=== PATIENT | female | born 1950 ===

== ENCOUNTER 2020-06-24 07:20 | Day surgery (SDC) | payer OTHER ==
[~2020-06-24] VITALS: Ht 162.6 cm; Wt 81.0 kg
[~2020-06-24 07:20] MED LIST: ALLO100 PO; ALLO300 PO; ALLOPURINOL; AMLO5 PO; BUME2 PO; CALC.25 PO; DULO30 PO; DULO60 PO; Estradiol0.5 MG VAG; HYDRA50 PO; LOSA50 PO; MELATIN3 MG PO; MELO7.5 PO; PREG100 PO; PREG200 PO; SPIR25 PO; TRAZ50 PO; VOLTAREN ARTHRI20 GM TOP
[2020-06-24] MEDS ORDERED: LEVSOD75 PO (07:32)
== END 2020-06-24 09:18 | disposition home or self-care (01) ==
LOC: ORSCSDS 07:20
PROVIDERS: Ophthalmology
PROC: 08RJ3JZ Replacement of Right Lens with Synthetic Substitute, Percutaneous Approach (ICD-10-PCS; principal; 2020-06-24 08:30)
DX: H25.11 Age-related nuclear cataract, right eye (principal); I10 Essential (primary) hypertension; E03.9 Hypothyroidism, unspecified; B19.20 Unspecified viral hepatitis C without hepatic coma; Z79.899 Other long term (current) drug therapy
CPT/HCPCS: J2001; J2250; J3010; J3301; J7040; V2632

== ENCOUNTER 2020-08-12 06:28 | Day surgery (SDC) | payer OTHER ==
[~2020-08-12] VITALS: Ht 162.6 cm; Wt 81.3 kg
[~2020-08-12 06:28] MED LIST changes: +LEVSOD75 PO
--- NOTE | 2020-08-12 06:42 | NUR ---
08/12/20 0642 Melanie Boyd TETRACAINE DROP INSTILLED AT 0641 BY [facility]
[2020-08-12] MEDS ORDERED: BUPR150ER (06:44)
[2020-08-12] MEDS ORDERED: FLUOXETINE HCL20 M1 (06:45)
== END 2020-08-12 08:16 | disposition home or self-care (01) ==
LOC: ORSCSDS 06:28
PROVIDERS: Ophthalmology
PROC: 08RK3JZ Replacement of Left Lens with Synthetic Substitute, Percutaneous Approach (ICD-10-PCS; principal; 2020-08-12 07:30)
DX: H25.12 Age-related nuclear cataract, left eye (principal); I10 Essential (primary) hypertension; E11.9 Type 2 diabetes mellitus without complications; E03.9 Hypothyroidism, unspecified; Z87.891 Personal history of nicotine dependence; Z79.899 Other long term (current) drug therapy
CPT/HCPCS: A9270; J2001; J2250; J3010; J3301; J7040; V2632

== ENCOUNTER 2024-12-20 17:15 | Emergency (ER) | payer OTHER ==
[~2024-12-20] VITALS: Ht 162.6 cm; Wt 108.9 kg
[~2024-12-20 17:15] MED LIST changes: +BUPR150ER; +FLUOXETINE HCL20 M1
[2024-12-20 17:34] VITALS: BP 116/73
== END 2024-12-20 19:40 | disposition home or self-care (01) ==
LOC: ER 17:15
DX: S09.90XA Unspecified injury of head, initial encounter (principal); W18.30XA Fall on same level, unspecified, initial encounter; Z88.2 Allergy status to sulfonamides; Z79.899 Other long term (current) drug therapy; Z79.890 Hormone replacement therapy; I10 Essential (primary) hypertension; Z90.711 Acquired absence of uterus with remaining cervical stump; Z90.722 Acquired absence of ovaries, bilateral; Z90.89 Acquired absence of other organs
CPT/HCPCS: 70450; 72125; 73030; 99284-25; A9270